=== PATIENT | male | born 1975 | race Two or more races ===

== ENCOUNTER 2023-05-28 10:40 | Emergency (ER) | payer OTHER ==
[~2023-05-28] VITALS: Ht 175.3 cm; Wt 79.8 kg
== END 2023-05-28 11:42 | disposition home or self-care (01) ==
LOC: ER 10:40
DX: M25.511 Pain in right shoulder (principal); Z85.118 Personal history of other malignant neoplasm of bronchus and lung; Z88.8 Allergy status to other drugs, medicaments and biological substances

== ENCOUNTER 2023-05-30 19:17 | Emergency (ER) | payer OTHER ==
[~2023-05-30] VITALS: Ht 175.3 cm; Wt 84.4 kg
[2023-05-30] MEDS ORDERED: OXAYDO5 MG PO (19:37)
[2023-05-30] MEDS ORDERED: PENTOXIFYLINE100 GM (19:37)
[2023-05-30] MEDS ORDERED: AMLODIPINE-OLM1 EAC2 (19:37)
[2023-05-30] MEDS ORDERED: LYRICA20 MG/1 ML PO (19:37)
[2023-05-30] MEDS ORDERED: HYDRODIURIL12.5 MG PO (19:38)
[2023-05-30] MEDS ORDERED: KEPPRA100 MG/1 M (19:38)
[2023-05-30] MEDS ORDERED: METROPOLOL (19:39)
[2023-05-30] MEDS ORDERED: GRALISE600 MG (19:39)
[2023-05-30] MEDS ORDERED: PROCHLORPERAZIN25 GM (19:39)
[2023-05-30] MEDS ORDERED: ATIVAN0.5 M1 (19:40)
[2023-05-30] MEDS ORDERED: KLOR-CON 1010 MEQ (19:40)
== END 2023-05-30 23:11 | disposition home or self-care (01) ==
LOC: ER 19:17
DX: U07.1 COVID-19 (principal); Z85.118 Personal history of other malignant neoplasm of bronchus and lung